=== PATIENT | female | born 1995 | race Caucasian/White ===

== ENCOUNTER 2016-08-09 04:13 | Emergency (ER) | payer OTHER ==
--- NOTE | 2016-08-09 05:10 | ED CLINICAL REPORT ---
Clinical Report - Physicians/Mid Levels [facility] [address] [place] [address] 08/09/2016 4:12 Patient: SKYLER KNUTSON Time Seen: 04:24. Arrived- By private vehicle. Historian- patient. HISTORY OF PRESENT ILLNESS Chief Complaint: LOWER EXTREMITY PAIN. This started today about 30 minutes ago and is still present. It was abrupt in onset and has been constant. Severity is described as being severe. The quality is noted to be "pain". Symptoms located in the area of the left ankle. The patient has not had redness. No swelling, sensory loss or motor loss. Patient denies an injury. REVIEW OF SYSTEMS she is currently breast-feeding. All systems otherwise negative, except as recorded above. PAST HISTORY Problems: Problems. URI. Vomiting. Abdominal Pain. Myofascial Strain. Crush Injury, Lower Extremity. Burn. Cellulitis. Sunburn. Cervical Strain. Laceration. Gastritis. Back Pain. OB History. Contusion. Irritable Bowel Syndrome. Anxiety Reaction. Additional Surgeries: Colonoscopy. Dental Surgery. Endoscopy. Medications: None. Allergies: Q-brinda. SOCIAL HISTORY Former smoker, end date 2015. History of occasional drug use: marijuana. No alcohol use. FAMILY HISTORY No significant family medical history. ADDITIONAL NOTES The nursing notes have been reviewed. PHYSICAL EXAM Vital Signs: 08/09/2016 04:17 BP: 142/74. HR: 79. RR: 15. O2 saturation: 100%. Temp: 98.1 F. Pain level now: 7/10. Have been reviewed. Appearance: Alert. No acute distress. Eyes: Pupils equal, round and reactive to light. ENT: Pharynx normal. Neck: Normal inspection. Neck supple. CVS: Normal heart rate and rhythm. Heart sounds normal. Respiratory: No respiratory distress. Breath sounds normal. Abdomen: Soft and nontender. No organomegaly. Back: Normal inspection. ROM normal. Skin: Skin intact. Skin dry. Normal skin color. Normal skin turgor. Extremities: Left ankle: mild tenderness. Neurovascular intact distally. No ligamentous laxity present. No joint effusion. No erythema, swelling, ecchymosis or deformity. No limitation in ROM. Lower extremities exhibit normal ROM. No lower extremity edema. No signs of infection involving the lower extremities. No lower extremity edema. No calf tenderness. Extremities otherwise negative. Neuro, Vascular and Tendons: No pulse deficit present. Gait: Gait not tested due to pain. LABS, X-RAYS, AND EKG X-Rays: Left ankle negative. The X-rays were independently viewed by me. PROGRESS AND PROCEDURES Course of Care: Patient is stable. Patient/family counseled. Old medical records ordered. Disposition: Discharged. Condition: stable. CLINICAL IMPRESSION Acute left ankle pain. INSTRUCTIONS Apply ice for 20 minutes four times a day until better. Don't apply ice directly to skin and don't use while asleep. Use crutches until better. You may walk and bear weight as tolerated. Warnings: Further evaluation is necessary. GENERAL WARNINGS: Return or contact your physician immediately if your condition worsens or changes unexpectedly, if not improving as expected, or if other problems arise. OTC Medications: Motrin (available over the counter): take according to label instructions. Follow-up: Follow up with a specialist- as recommended by your primary care physician- survey project manager. Understanding of the discharge instructions verbalized by patient. Follow-up with: [facility], , , [address], , [place], [id number] Follow up today. Call for the next available appointment. (Electronically signed by Moises Obregon MD 08/09/2016 8:21)
--- NOTE | 2016-08-09 05:10 | ED ORDER SUMMARY ---
..... Patient: SKYLER KNUTSON OrderSheet [facility] VisitID: [id number] [place] [address] 20y, F Registration Date/Time: 08/09/2016 ORDER SHEET Weight: 74.8 kg (stated) Allergies: Q-brinda GENERAL ORDERS: Ankle 3 or 4V Left Urgent (04:27 08/09/2016 Abiola R.N. verbal order read back to Rosa HOOVER) (4:35 [facility] Area Forester) Crutches (05:05 08/09/2016 Rosa HOOVER) (Ack 5:14 JQuivey R.N.) MEDICATION ORDERS: Toradol IM 60 mg (NOW) (05:05 08/09/2016 Rosa HOOVER) (Ack 5:05 JQuivey R.N.) (5:10 JQuivey R.N.) IV FLUIDS: ORDER SHEET NOTES: [Electronically signed by Jose Bailey R.N. (05:48 08/09/2016)] [Electronically signed by Moises Obregon MD (08:21 08/09/2016)] [Electronically locked/signed by Jose Bailey R.N. (05:48 08/09/2016)]
--- NOTE | 2016-08-09 05:10 | ED NURSING NOTES ---
Clinical Report - Nurses [facility] [place] [address] 08/09/2016 4:12 Patient: SKYLER KNUTSON TRIAGE Triage time 04:17. Acuity: LEVEL 4. Chief Complaint: INJURY TO LEFT ANKLE. 04:21. Alert. SEPSIS SCREEN: Sepsis Screen. Negative (no infection suspected/documented). MEKHI COMA SCORE: Mekhi Coma Scale: 15- eyes open spontaneously (4); best verbal response- oriented x 4 (5); best motor response- obeys commands (6). --04:22 Jose Bailey R.N. 04:17 08/09/16. BP: 142/74. HR: 79. RR: 15. O2 saturation: 100% on room air. Temp: 98.1 F (oral). Pain level now: 02/05. --04:22 Jose Bailey R.N. Weight: 74.8 kg stated. Height/Length: 68 inches Per Patient. BMI: 25.1. --04:20 Jose Bailey R.N. Medications None. --04:18 Jose Bailey R.N. Medication/allergy information source: the patient. --04:22 Jose Bailey R.N. Allergies Q-brinda. --04:19 Jose Bailey R.N. History Arrived by private vehicle. Historian: patient. Accompanied by friend. Primary physician (None). This occurred today. Occurred at home. ( Patient reports waking up with left ankle pain, denies any injury). 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 PAST MEDICAL HX: Tetanus status: up-to-date. Immunizations: up-to-date. Last normal menstrual period- 9 months ago. SOCIAL HX: Former smoker, end date 2015. Occasional alcohol use. History of occasional drug use: marijuana. No infectious disease exposure. ABUSE ASSESSMENT: No report of abuse. FALL RISK ASSESSMENT: Fall risk assessment completed. No fall risk identified. NUTRITIONAL RISK ASSESSMENT: The nutritional risk assessment revealed no deficiencies. FUNCTIONAL ASSESSMENT: Functional assessment: no impairments noted. LEARNING NEEDS ASSESSMENT: The learning needs assessment revealed no barriers. SKIN INTEGRITY ASSESSMENT: Skin integrity risk assessment completed. No skin integrity risk identified. --04:22 Jose Bailey R.N. PROBLEMS: URI. Viral Disease. Cellulitis. Irritable Bowel Syndrome. Anxiety Reaction. UTI - Urinary Tract Infection. --04:19 Jose Bailey R.N. ADDITIONAL SURGERIES: Colonoscopy. Dental Surgery. Endoscopy. --04:19 Jose Bailey R.N. Interventions ID band on patient. To treatment room. --04:22 Jose Bailey R.N. PHYSICAL ASSESSMENT 04:22. To room via wheelchair. GENERAL / NEURO / PSYCH: Oriented X 4. Alert. EXTREMITIES: Extremity pulses are within normal limits. Neuro-vascular status intact to the extremity. SKIN: Skin intact. Skin is warm and dry. --04:22 Jose Bailey R.N. NURSING PROGRESS NOTES 04:22. Two patient identifiers checked. Call light placed in reach. Bed placed in lowest position. Brakes of bed on. Patient ready for evaluation- chart flagged. --04:22 Jose Bailey R.N. 04:32 Portable x-ray left ankle. --04:53 Jose Bailey R.N. 05:08 08/09/2016 Toradol (Ketorolac Tromethamine) IM 60 mg given. Given in the left ventral gluteus. Allergies verified and confirmed 5 rights. --05:10 Jose Bailey R.N. Patient fit with new crutches (0515). --05:18 Debbie Cho. DISPOSITION / DISCHARGE 05:20 Went to discharge pt - pt not in room, unable to locate pt in ED restrooms lobby or parking lot, discharge paper work taken to registration for mailing. The patient left prior to discharge education being provided. --05:41 Jose Bailey R.N. Departure time: 05:20. --05:41 Jose Bailey R.N. Locked/Released at 08/09/2016 5:48 by Jose Bailey R.N.
--- NOTE | 2016-08-09 05:10 | ED ORDER SUMMARY ---
..... Patient: SKYLER KNUTSON OrderSheet [facility] VisitID: [id number] [place] [address] 20y, F Registration Date/Time: 08/09/2016 ORDER SHEET Weight: 74.8 kg (stated) Allergies: Q-brinda GENERAL ORDERS: Ankle 3 or 4V Left Urgent (04:27 08/09/2016 Abiola R.N. verbal order read back to Rosa HOOVER) (4:35 [facility] Metal Products Viewer) Crutches (05:05 08/09/2016 Rosa HOOVER) (Ack 5:14 JQuivey R.N.) MEDICATION ORDERS: Toradol IM 60 mg (NOW) (05:05 08/09/2016 Rosa HOOVER) (Ack 5:05 JQuivey R.N.) (5:10 JQuivey R.N.) IV FLUIDS: ORDER SHEET NOTES: [Electronically signed by Jose Bailey R.N. (05:48 08/09/2016)] [Electronically signed by Moises Obregon MD (08:21 08/09/2016)] [Electronically locked/signed by Jose Bailey R.N. (05:48 08/09/2016)]
--- NOTE | 2016-08-09 05:10 | ED CLINICAL REPORT ---
Clinical Report - Physicians/Mid Levels [facility] [address] [place] [address] 08/09/2016 4:12 Patient: SKYLER KNUTSON Time Seen: 04:24. Arrived- By private vehicle. Historian- patient. HISTORY OF PRESENT ILLNESS Chief Complaint: LOWER EXTREMITY PAIN. This started today about 30 minutes ago and is still present. It was abrupt in onset and has been constant. Severity is described as being severe. The quality is noted to be "pain". Symptoms located in the area of the left ankle. The patient has not had redness. No swelling, sensory loss or motor loss. Patient denies an injury. REVIEW OF SYSTEMS she is currently breast-feeding. All systems otherwise negative, except as recorded above. PAST HISTORY Problems: Problems. URI. Vomiting. Abdominal Pain. Myofascial Strain. Crush Injury, Lower Extremity. Burn. Cellulitis. Sunburn. Cervical Strain. Laceration. Gastritis. Back Pain. OB History. Contusion. Irritable Bowel Syndrome. Anxiety Reaction. Additional Surgeries: Colonoscopy. Dental Surgery. Endoscopy. Medications: None. Allergies: Q-brinda. SOCIAL HISTORY Former smoker, end date 2015. History of occasional drug use: marijuana. No alcohol use. FAMILY HISTORY No significant family medical history. ADDITIONAL NOTES The nursing notes have been reviewed. PHYSICAL EXAM Vital Signs: 08/09/2016 04:17 BP: 142/74. HR: 79. RR: 15. O2 saturation: 100%. Temp: 98.1 F. Pain level now: 7/10. Have been reviewed. Appearance: Alert. No acute distress. Eyes: Pupils equal, round and reactive to light. ENT: Pharynx normal. Neck: Normal inspection. Neck supple. CVS: Normal heart rate and rhythm. Heart sounds normal. Respiratory: No respiratory distress. Breath sounds normal. Abdomen: Soft and nontender. No organomegaly. Back: Normal inspection. ROM normal. Skin: Skin intact. Skin dry. Normal skin color. Normal skin turgor. Extremities: Left ankle: mild tenderness. Neurovascular intact distally. No ligamentous laxity present. No joint effusion. No erythema, swelling, ecchymosis or deformity. No limitation in ROM. Lower extremities exhibit normal ROM. No lower extremity edema. No signs of infection involving the lower extremities. No lower extremity edema. No calf tenderness. Extremities otherwise negative. Neuro, Vascular and Tendons: No pulse deficit present. Gait: Gait not tested due to pain. LABS, X-RAYS, AND EKG X-Rays: Left ankle negative. The X-rays were independently viewed by me. PROGRESS AND PROCEDURES Course of Care: Patient is stable. Patient/family counseled. Old medical records ordered. Disposition: Discharged. Condition: stable. CLINICAL IMPRESSION Acute left ankle pain. INSTRUCTIONS Apply ice for 20 minutes four times a day until better. Don't apply ice directly to skin and don't use while asleep. Use crutches until better. You may walk and bear weight as tolerated. Warnings: Further evaluation is necessary. GENERAL WARNINGS: Return or contact your physician immediately if your condition worsens or changes unexpectedly, if not improving as expected, or if other problems arise. OTC Medications: Motrin (available over the counter): take according to label instructions. Follow-up: Follow up with a specialist- as recommended by your primary care physician- crime laboratory analyst. Understanding of the discharge instructions verbalized by patient. Follow-up with: [facility], , , [address], , [place], [id number] Follow up today. Call for the next available appointment. (Electronically signed by Moises Obregon MD 08/09/2016 8:21)
--- NOTE | 2016-08-09 05:10 | ED NURSING NOTES ---
Clinical Report - Nurses [facility] [place] [address] [address] [place] [address] 08/09/2016 4:12 Patient: SKYLER KNUTSON TRIAGE Triage time 04:17. Acuity: LEVEL 4. Chief Complaint: INJURY TO LEFT ANKLE. 04:21. Alert. SEPSIS SCREEN: Sepsis Screen. Negative (no infection suspected/documented). MEKHI COMA SCORE: Mekhi Coma Scale: 15- eyes open spontaneously (4); best verbal response- oriented x 4 (5); best motor response- obeys commands (6). --04:22 Jose Bailey R.N. 04:17 08/09/16. BP: 142/74. HR: 79. RR: 15. O2 saturation: 100% on room air. Temp: 98.1 F (oral). Pain level now: 02/05. --04:22 Jose Bailey R.N. Weight: 74.8 kg stated. Height/Length: 68 inches Per Patient. BMI: 25.1. --04:20 Jose Bailey R.N. Medications None. --04:18 Jose Bailey R.N. Medication/allergy information source: the patient. --04:22 Jose Bailey R.N. Allergies Q-brinda. --04:19 Jose Bailey R.N. History Arrived by private vehicle. Historian: patient. Accompanied by friend. Primary physician (None). This occurred today. Occurred at home. ( Patient reports waking up with left ankle pain, denies any injury). 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 PAST MEDICAL HX: Tetanus status: up-to-date. Immunizations: up-to-date. Last normal menstrual period- 9 months ago. SOCIAL HX: Former smoker, end date 2015. Occasional alcohol use. History of occasional drug use: marijuana. No infectious disease exposure. ABUSE ASSESSMENT: No report of abuse. FALL RISK ASSESSMENT: Fall risk assessment completed. No fall risk identified. NUTRITIONAL RISK ASSESSMENT: The nutritional risk assessment revealed no deficiencies. FUNCTIONAL ASSESSMENT: Functional assessment: no impairments noted. LEARNING NEEDS ASSESSMENT: The learning needs assessment revealed no barriers. SKIN INTEGRITY ASSESSMENT: Skin integrity risk assessment completed. No skin integrity risk identified. --04:22 Jose Bailey R.N. PROBLEMS: URI. Viral Disease. Cellulitis. Irritable Bowel Syndrome. Anxiety Reaction. UTI - Urinary Tract Infection. --04:19 Jose Bailey R.N. ADDITIONAL SURGERIES: Colonoscopy. Dental Surgery. Endoscopy. --04:19 Jose Bailey R.N. Interventions ID band on patient. To treatment room. --04:22 Jose Bailey R.N. PHYSICAL ASSESSMENT 04:22. To room via wheelchair. GENERAL / NEURO / PSYCH: Oriented X 4. Alert. EXTREMITIES: Extremity pulses are within normal limits. Neuro-vascular status intact to the extremity. SKIN: Skin intact. Skin is warm and dry. --04:22 Jose Bailey R.N. NURSING PROGRESS NOTES 04:22. Two patient identifiers checked. Call light placed in reach. Bed placed in lowest position. Brakes of bed on. Patient ready for evaluation- chart flagged. --04:22 Jose Bailey R.N. 04:32 Portable x-ray left ankle. --04:53 Jose Bailey R.N. 05:08 08/09/2016 Toradol (Ketorolac Tromethamine) IM 60 mg given. Given in the left ventral gluteus. Allergies verified and confirmed 5 rights. --05:10 Jose Bailey R.N. Patient fit with new crutches (0515). --05:18 Debbie Cho. DISPOSITION / DISCHARGE 05:20 Went to discharge pt - pt not in room, unable to locate pt in ED restrooms lobby or parking lot, discharge paper work taken to registration for mailing. The patient left prior to discharge education being provided. --05:41 Jose Bailey R.N. Departure time: 05:20. --05:41 Jose Bailey R.N. Locked/Released at 08/09/2016 5:48 by Jose Bailey R.N.
--- NOTE | 2016-08-09 07:33 | DIAGNOSTIC IMAGING REPORT ---
PROCEDURE: XR ANKLE 3 OR 4 VIEWS - LEFT INDICATION: PAIN, initial encounter TECHNIQUE: Four views. COMPARISON: None. FINDINGS: Osseous structures, joint spaces and soft tissues are normal. Ankle mortise is normal. IMPRESSION: 1. Normal left ankle.
--- NOTE | 2016-08-09 08:22 | ED MAR SUMMARY ---
..... Medication Administration Record [facility] [address] [place] [address] Patient: SKYLER KNUTSON Visit ID: [id number] 20y, F Weight: 74.8 kg Height/Length: 68 in BMI: 25.1 ALLERGIES: Q-brinda Given 05:08 08/09/2016 Jose Bailey RZoeNZoe Medication Administered: TORADOL [IM] (KETOROLAC TROMETHAMINE), Dose: 60 mg IM. Medication Ordered: Toradol IM 60 mg (NOW).
--- NOTE | 2016-08-09 08:22 | ED DISCHARGE INSTRUCTIONS ---
Patient: SKYLER KNUTSON General Instructions [facility] VisitID: [id number] [address] [place] [address] 20y, F Registration Date/Time: 08/09/2016 Acute left ankle pain. INSTRUCTIONS Apply ice for 20 minutes four times a day until better. Don't apply ice directly to skin and don't use while asleep. Use crutches until better. You may walk and bear weight as tolerated. Warnings: Further evaluation is necessary. GENERAL WARNINGS: Return or contact your physician immediately if your condition worsens or changes unexpectedly, if not improving as expected, or if other problems arise. OTC Medications: Motrin (available over the counter): take according to label instructions. Follow-up: Follow up with a specialist- as recommended by your primary care physician- wash driller helper. Understanding of the discharge instructions verbalized by patient. Follow-up with: [facility], , , [address], [place], [id number] Follow up today. Call for the next available appointment. ADDITIONAL INFORMATION Crutch Walking Crutch Adjustment Make sure the crutches you use are adjusted to fit you. When you stand, there should be room to fit 2-3 fingers between the top of the crutch and your armpit. Your elbow should be slightly bent when holding the hand recovery coordinator. Crutch Walking: Place the crutches forward 12" in front of and 6" to the side of your feet. Lean your weight forward as you push down on the handgrips. Your weight should be on your hands and yourstrong leg, not your armpits . Let your body swing through, landing on the strong leg. Advance the crutches forward again. The crutch and the injured leg should move together. Going Up Steps: ("Up with the good") With both crutches on the same step as your feet, push down on the handgrips. Balancing with very light pressure on the weak leg, let your hands support your weight as you raise your strong leg onto the next higher step. Transfer all your weight to your strong leg (still bent) as you move the crutches up to the next step alongside the strong leg. With your weight evenly balanced on the two crutches and your strong leg, straighten your strong knee as you raise the weak leg up to the next step. Going Down Steps: ("Down with the bad") With both crutches on the same step as your feet, push down on the handgrips. With your weight evenly balanced on the two crutches and your strong leg, bend your strong knee as you lower the weak leg down to the next step. Let your strong leg support you (still bent) as you move the crutches down alongside the weak leg. Transfer your weight to your hands, balancing with very light pressure on the weak leg as you lower your strong leg alongside your weak leg. Ibuprofen Oral tablet What is this medicine? IBUPROFEN (eye BYOO proe fen) is a non-steroidal anti-inflammatory drug (NSAID). It is used for dental pain, fever, headaches or migraines, osteoarthritis, rheumatoid arthritis, or painful monthly periods. It can also relieve minor aches and pains caused by a cold, flu, or sore throat. How should I use this medicine? Take this medicine by mouth with a glass of water. Follow the directions on the prescription label. Take this medicine with food if your stomach gets upset. Try to not lie down for at least 10 minutes after you take the medicine. Take your medicine at regular intervals. Do not take your medicine more often than directed. A special MedGuide will be given to you by the pharmacist with each prescription and refill. Be sure to read this information carefully each time. Talk to your anvil seating press operator regarding the use of this medicine in children. Special care may be needed. What side effects may I notice from receiving this medicine? Side effects that you should report to your doctor or health childcare attendant as soon as possible: allergic reactions like skin rash, itching or hives, swelling of the face, lips, or tongue black or bloody stools, blood in the urine or in vomit breathing problems changes in vision chest pain general ill feeling or flu-like symptoms nausea or vomiting redness, blistering, peeling or loosening of the skin, including inside the mouth slurred speech or weakness on one side of the body stomach pain unexplained weight gain or swelling unusually weak or tired yellowing of eyes or skin Side effects that usually do not require medical attention (report to your doctor or health childcare attendant if they continue or are bothersome): constipation or diarrhea dizziness gas or heartburn stomach upset What may interact with this medicine? Do not take this medicine with any of the following medications: cidofovir ketorolac methotrexate pemetrexed This medicine may also interact with the following medications: alcohol aspirin diuretics lithium other drugs for inflammation like prednisone warfarin What if I miss a dose? If you miss a dose, take it as soon as you can. If it is almost time for your next dose, take only that dose. Do not take double or extra doses. Where should I keep my medicine? Keep out of the reach of children. Store at room temperature between 15 and 30 degrees C (59 and 86 degrees F). Keep container tightly closed. Throw away any unused medicine after the expiration date. What should I tell my health care provider before I take this medicine? They need to know if you have any of these conditions: asthma cigarette smoker drink more than 3 alcohol containing drinks a day heart disease or circulation problems such as heart failure or leg edema (fluid retention) high blood pressure kidney disease liver disease stomach bleeding or ulcers an unusual or allergic reaction to ibuprofen, aspirin, other NSAIDS, other medicines, foods, dyes, or preservatives or trying to get breast-feeding What should I watch for while using this medicine? Tell your doctor or healthcare professional if your symptoms do not start to get better or if they get worse. This medicine does not prevent heart attack or stroke. In fact, this medicine may increase the chance of a heart attack or stroke. The chance may increase with longer use of this medicine and in people who have heart disease. If you take aspirin to prevent heart attack or stroke, talk with your doctor or health childcare attendant. Do not take other medicines that contain aspirin, ibuprofen, or naproxen with this medicine. Side effects such as stomach upset, nausea, or ulcers may be more likely to occur. Many medicines available without a prescription should not be taken with this medicine. This medicine can cause ulcers and bleeding in the stomach and intestines at any time during treatment. Ulcers and bleeding can happen without warning symptoms and can cause . To reduce your risk, do not smoke cigarettes or drink alcohol while you are taking this medicine. You may get drowsy or dizzy. Do not drive, use machinery, or do anything that needs mental alertness until you know how this medicine affects you. Do not stand or sit up quickly, especially if you are an older patient. This reduces the risk of dizzy or fainting spells. This medicine can cause you to bleed more easily. Try to avoid damage to your teeth and gums when you brush or floss your teeth. You have been given the following additional information: Crutch Walking Ibuprofen Oral tablet You may walk and bear weight as tolerated. (Electronically signed by Moises Obregon MD 08/09/2016 8:21)
--- NOTE | 2016-08-09 08:22 | ED MED RECONCILIATION SUMMARY ---
Patient: SKYLER KNUTSON Medication Reconciliation Report [facility] VisitID: [id number] [address] [place] [address] 20y, F Registration Date/Time: 08/09/2016 Weight: 74.8 kg Height/Length: 68 in. BMI: 25.1 ALLERGIES: Q-brinda The patient's Home Medications are listed below: NONE. The source(s) of the original Home Medication information: patient The following Medications were given to the patient in the Emergency Department: Toradol [IM] IM 60 mg, administered: 08/09/2016 5:08:00 AM The following Medications were prescribed to the patient: Motrin (available over the counter): take according to label instructions. -- Moises Obregon MD
--- NOTE | 2016-08-09 08:22 | ED MED RECONCILIATION SUMMARY ---
Patient: SKYLER KNUTSON Medication Reconciliation Report [facility] VisitID: [id number] [address] [place] [address] 20y, F Registration Date/Time: 08/09/2016 Weight: 74.8 kg Height/Length: 68 in. BMI: 25.1 ALLERGIES: Q-brinda The patient's Home Medications are listed below: NONE. The source(s) of the original Home Medication information: patient The following Medications were given to the patient in the Emergency Department: Toradol [IM] IM 60 mg, administered: 08/09/2016 5:08:00 AM The following Medications were prescribed to the patient: Motrin (available over the counter): take according to label instructions. -- Moises Obregon MD
--- NOTE | 2016-08-09 08:22 | ED MAR SUMMARY ---
..... Medication Administration Record [facility] [address] [place] [address] Patient: SKYLER KNUTSON Visit ID: [id number] 20y, F Weight: 74.8 kg Height/Length: 68 in BMI: 25.1 ALLERGIES: Q-brinda Given 05:08 08/09/2016 Jose Bailey RZoeNZoe Medication Administered: TORADOL [IM] (KETOROLAC TROMETHAMINE), Dose: 60 mg IM. Medication Ordered: Toradol IM 60 mg (NOW).
--- NOTE | 2016-08-09 08:22 | ED DISCHARGE INSTRUCTIONS ---
Patient: SKYLER KNUTSON General Instructions [facility] VisitID: [id number] [address] [place] [address] 20y, F Registration Date/Time: 08/09/2016 Acute left ankle pain. INSTRUCTIONS Apply ice for 20 minutes four times a day until better. Don't apply ice directly to skin and don't use while asleep. Use crutches until better. You may walk and bear weight as tolerated. Warnings: Further evaluation is necessary. GENERAL WARNINGS: Return or contact your physician immediately if your condition worsens or changes unexpectedly, if not improving as expected, or if other problems arise. OTC Medications: Motrin (available over the counter): take according to label instructions. Follow-up: Follow up with a specialist- as recommended by your primary care physician- clipper automatic. Understanding of the discharge instructions verbalized by patient. Follow-up with: [facility], , , [address], [place], [id number] Follow up today. Call for the next available appointment. ADDITIONAL INFORMATION Crutch Walking Crutch Adjustment Make sure the crutches you use are adjusted to fit you. When you stand, there should be room to fit 2-3 fingers between the top of the crutch and your armpit. Your elbow should be slightly bent when holding the hand college sports coach. Crutch Walking: Place the crutches forward 12" in front of and 6" to the side of your feet. Lean your weight forward as you push down on the handgrips. Your weight should be on your hands and yourstrong leg, not your armpits . Let your body swing through, landing on the strong leg. Advance the crutches forward again. The crutch and the injured leg should move together. Going Up Steps: ("Up with the good") With both crutches on the same step as your feet, push down on the handgrips. Balancing with very light pressure on the weak leg, let your hands support your weight as you raise your strong leg onto the next higher step. Transfer all your weight to your strong leg (still bent) as you move the crutches up to the next step alongside the strong leg. With your weight evenly balanced on the two crutches and your strong leg, straighten your strong knee as you raise the weak leg up to the next step. Going Down Steps: ("Down with the bad") With both crutches on the same step as your feet, push down on the handgrips. With your weight evenly balanced on the two crutches and your strong leg, bend your strong knee as you lower the weak leg down to the next step. Let your strong leg support you (still bent) as you move the crutches down alongside the weak leg. Transfer your weight to your hands, balancing with very light pressure on the weak leg as you lower your strong leg alongside your weak leg. Ibuprofen Oral tablet What is this medicine? IBUPROFEN (eye BYOO proe fen) is a non-steroidal anti-inflammatory drug (NSAID). It is used for dental pain, fever, headaches or migraines, osteoarthritis, rheumatoid arthritis, or painful monthly periods. It can also relieve minor aches and pains caused by a cold, flu, or sore throat. How should I use this medicine? Take this medicine by mouth with a glass of water. Follow the directions on the prescription label. Take this medicine with food if your stomach gets upset. Try to not lie down for at least 10 minutes after you take the medicine. Take your medicine at regular intervals. Do not take your medicine more often than directed. A special MedGuide will be given to you by the pharmacist with each prescription and refill. Be sure to read this information carefully each time. Talk to your ms access database developer regarding the use of this medicine in children. Special care may be needed. What side effects may I notice from receiving this medicine? Side effects that you should report to your doctor or health direct care specialist as soon as possible: allergic reactions like skin rash, itching or hives, swelling of the face, lips, or tongue black or bloody stools, blood in the urine or in vomit breathing problems changes in vision chest pain general ill feeling or flu-like symptoms nausea or vomiting redness, blistering, peeling or loosening of the skin, including inside the mouth slurred speech or weakness on one side of the body stomach pain unexplained weight gain or swelling unusually weak or tired yellowing of eyes or skin Side effects that usually do not require medical attention (report to your doctor or health direct care specialist if they continue or are bothersome): constipation or diarrhea dizziness gas or heartburn stomach upset What may interact with this medicine? Do not take this medicine with any of the following medications: cidofovir ketorolac methotrexate pemetrexed This medicine may also interact with the following medications: alcohol aspirin diuretics lithium other drugs for inflammation like prednisone warfarin What if I miss a dose? If you miss a dose, take it as soon as you can. If it is almost time for your next dose, take only that dose. Do not take double or extra doses. Where should I keep my medicine? Keep out of the reach of children. Store at room temperature between 15 and 30 degrees C (59 and 86 degrees F). Keep container tightly closed. Throw away any unused medicine after the expiration date. What should I tell my health care provider before I take this medicine? They need to know if you have any of these conditions: asthma cigarette smoker drink more than 3 alcohol containing drinks a day heart disease or circulation problems such as heart failure or leg edema (fluid retention) high blood pressure kidney disease liver disease stomach bleeding or ulcers an unusual or allergic reaction to ibuprofen, aspirin, other NSAIDS, other medicines, foods, dyes, or preservatives or trying to get breast-feeding What should I watch for while using this medicine? Tell your doctor or healthcare professional if your symptoms do not start to get better or if they get worse. This medicine does not prevent heart attack or stroke. In fact, this medicine may increase the chance of a heart attack or stroke. The chance may increase with longer use of this medicine and in people who have heart disease. If you take aspirin to prevent heart attack or stroke, talk with your doctor or health direct care specialist. Do not take other medicines that contain aspirin, ibuprofen, or naproxen with this medicine. Side effects such as stomach upset, nausea, or ulcers may be more likely to occur. Many medicines available without a prescription should not be taken with this medicine. This medicine can cause ulcers and bleeding in the stomach and intestines at any time during treatment. Ulcers and bleeding can happen without warning symptoms and can cause . To reduce your risk, do not smoke cigarettes or drink alcohol while you are taking this medicine. You may get drowsy or dizzy. Do not drive, use machinery, or do anything that needs mental alertness until you know how this medicine affects you. Do not stand or sit up quickly, especially if you are an older patient. This reduces the risk of dizzy or fainting spells. This medicine can cause you to bleed more easily. Try to avoid damage to your teeth and gums when you brush or floss your teeth. You have been given the following additional information: Crutch Walking Ibuprofen Oral tablet You may walk and bear weight as tolerated. (Electronically signed by Moises Obregon MD 08/09/2016 8:21)
== END 2016-08-09 05:20 | disposition home or self-care (01) ==
LOC: ED SRH 04:13
DX: M25.572 Pain in left ankle and joints of left foot (principal); Z87.891 Personal history of nicotine dependence; Z88.8 Allergy status to other drugs, medicaments and biological substances

== ENCOUNTER 2016-10-25 18:37 | Emergency (ER) | payer OTHER ==
--- NOTE | 2016-10-25 20:06 | DIAGNOSTIC IMAGING REPORT ---
PROCEDURE: XR CHEST 2 VIEW INDICATION: CHEST PAIN TECHNIQUE: PA and lateral views. COMPARISON: None. FINDINGS: Allowing for overlying electrodes, lungs are clear. Heart and mediastinum are normal. Thorax is normal. IMPRESSION: 1. Negative chest.
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
--- NOTE | 2016-10-25 20:11 | ED ORDER SUMMARY ---
..... Patient: SKYLER KNUTSON OrderSheet [facility] VisitID: [id number] [place] [address] 20y, F Registration Date/Time: 10/25/2016 ORDER SHEET Weight: 73.9 kg (stated) Allergies: Shellfish-derived Products, Qvar GENERAL ORDERS: EKG - ER Stat (18:43 10/25/2016 SReitz R.N. per protocol) (Ack 18:45 LNations ER Tech1) (18:50 SReitz R.N.) Theater Usher (Continuous) (18:48 10/25/2016 EKoroleva P.A.-C) (18:50 SReitz R.N.) Cardiac Panel Stat (18:49 10/25/2016 EKoroleva P.A.-C) (Ack 18:54 LNations ER Tech1) (19:03 SReitz R.N.) EKG - ER Stat (18:49 10/25/2016 EKoroleva P.A.-C) (18:50 SReitz R.N.) (Cancelled: Other18:53 EKoroleva P.A.-C) Chest 2V Urgent (18:53 10/25/2016 EKoroleva P.A.-C) (Ack 18:55 LNations ER Tech1) (19:56 AMcQuoid ER Tech1) Serum Qualitative Urgent (18:53 10/25/2016 EKoroleva P.A.-C) (Ack 18:55 LNations ER Tech1) (19:03 SReitz R.N.) Vitals (19:23 10/25/2016 EKoroleva P.A.-C) (19:27 SReitz R.N.) Vitals (20:09 10/25/2016 EKoroleva P.A.-C) (20:09 AMcQuoid ER Tech1) MEDICATION ORDERS: IV FLUIDS: IV NS : initial bolus 1000 mL (1000 mL/hr), then 1000 mL/hr for X1 (NOW); Dony (18:47 10/25/2016 EKoroleva P.A.-C) (Ack 18:50 SReitz R.N.) (19:03 SReitz R.N.) Solu-MEDROL IV 125 mg (NOW) (18:48 10/25/2016 EKoroleva P.A.-C) (Ack 18:50 SReitz R.N.) (19:04 SReitz R.N.) Benadryl IV 50 mg (NOW) (18:48 10/25/2016 EKoroleva P.A.-C) (Ack 18:50 Bismarkitz R.N.) (19:04 SReitz R.N.) Zofran IV 4 mg (NOW) (18:49 10/25/2016 EKoroleva P.A.-C) (Ack 18:50 SReitz R.N.) (19:05 SReitz R.N.) ORDER SHEET NOTES: [Electronically signed by Desirae Harris P.A.-C (21:06 10/25/2016)] [Electronically signed by Maria Del Rosario Prieto R.N. (22:31 10/25/2016)] [Electronically locked/signed by Maria Del Rosario Prieto R.N. (22:31 10/25/2016)]
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
--- NOTE | 2016-10-25 20:11 | ED ORDER SUMMARY ---
..... Patient: SKYLER KNUTSON OrderSheet [facility] VisitID: [id number] [place] [address] 20y, F Registration Date/Time: 10/25/2016 ORDER SHEET Weight: 73.9 kg (stated) Allergies: Shellfish-derived Products, Qvar GENERAL ORDERS: EKG - ER Stat (18:43 10/25/2016 SReitz R.N. per protocol) (Ack 18:45 LNations ER Tech1) (18:50 SReitz R.N.) Trial Consultant (Continuous) (18:48 10/25/2016 EKoroleva P.A.-C) (18:50 SReitz R.N.) Cardiac Panel Stat (18:49 10/25/2016 EKoroleva P.A.-C) (Ack 18:54 LNations ER Tech1) (19:03 SReitz R.N.) EKG - ER Stat (18:49 10/25/2016 EKoroleva P.A.-C) (18:50 SReitz R.N.) (Cancelled: Other18:53 EKoroleva P.A.-C) Chest 2V Urgent (18:53 10/25/2016 EKoroleva P.A.-C) (Ack 18:55 LNations ER Tech1) (19:56 AMcQuoid ER Tech1) Serum Qualitative Urgent (18:53 10/25/2016 EKoroleva P.A.-C) (Ack 18:55 LNations ER Tech1) (19:03 SReitz R.N.) Vitals (19:23 10/25/2016 EKoroleva P.A.-C) (19:27 SReitz R.N.) Vitals (20:09 10/25/2016 EKoroleva P.A.-C) (20:09 AMcQuoid ER Tech1) MEDICATION ORDERS: IV FLUIDS: IV NS : initial bolus 1000 mL (1000 mL/hr), then 1000 mL/hr for X1 (NOW); Dony (18:47 10/25/2016 EKoroleva P.A.-C) (Ack 18:50 SReitz R.N.) (19:03 SReitz R.N.) Solu-MEDROL IV 125 mg (NOW) (18:48 10/25/2016 EKoroleva P.A.-C) (Ack 18:50 SReitz R.N.) (19:04 SReitz R.N.) Benadryl IV 50 mg (NOW) (18:48 10/25/2016 EKoroleva P.A.-C) (Ack 18:50 Bismarkitz R.N.) (19:04 SReitz R.N.) Zofran IV 4 mg (NOW) (18:49 10/25/2016 EKoroleva P.A.-C) (Ack 18:50 SReitz R.N.) (19:05 SReitz R.N.) ORDER SHEET NOTES: [Electronically signed by Desirae Harris P.A.-C (21:06 10/25/2016)] [Electronically signed by Maria Del Rosario Prieto R.N. (22:31 10/25/2016)] [Electronically locked/signed by Maria Del Rosario Priteo R.N. (22:31 10/25/2016)]
--- NOTE | 2016-10-25 22:31 | ED MED RECONCILIATION SUMMARY ---
Patient: SKYLER KNUTSON Medication Reconciliation Report [facility] VisitID: [id number] [place] [address] 20y, F Registration Date/Time: 10/25/2016 Weight: 73.9 kg Height/Length: 67 in. BMI: 25.5 ALLERGIES: Qvar, Shellfish-derived Products The patient's Home Medications are listed below: THE FOLLOWING MEDICATIONS NEED TO BE RECONCILED: Albuterol Sulfate Inhalation The source(s) of the original Home Medication information: Not obtained. The following Medications were given to the patient in the Emergency Department: IV NS IV Fluids bolus 0, then 1000 mL/hr, administered: 10/25/2016 6:57:00 PM Benadryl [IVP] IVP 50 mg, administered: 10/25/2016 6:58:00 PM SOLU-MEDROL [IVP] IVP 125 mg, administered: 10/25/2016 7:00:00 PM Zofran [IVP] IVP 4 mg, administered: 10/25/2016 7:02:00 PM The following Medications were prescribed to the patient: Albuterol HFA oral inhaler: inhale 1 to 2 puffs every four to six hours as needed for difficulty breathing. Dispense one (1) unit. No refills. -- Desirae Harris, PZoeAKainC
--- NOTE | 2016-10-25 22:31 | ED MAR SUMMARY ---
..... Medication Administration Record [facility] [address] [place] [address] Patient: SKYLER KNUTSON Visit ID: [id number] 20y, F Weight: 73.9 kg Height/Length: 67 in BMI: 25.5 ALLERGIES: Qvar, Shellfish-derived Products Start 18:57 10/25/2016 Maria Del Rosario Prieto R.N., Stop 20:38 10/25/2016 Maria Del Rosario Prieto R.N. Medication Administered: IV NS (SALINE), Dose: IV Fluids over 1 hour(s), Rate: 1000 mL/hr, Dispensed: 1000 mL bag, Site: #1 left AC. Medication Ordered: IV NS : initial bolus 1000 mL (1000 mL/hr), then 1000 mL/hr for X1 (NOW); Dony. Given 18:58 10/25/2016 Maria Del Rosario Prieto R.N. Medication Administered: BENADRYL [IVP] (DIPHENHYDRAMINE HCL), Dose: 50 mg IVP over 2 minute(s), Site: #1 left AC. Medication Ordered: Benadryl IV 50 mg (NOW). Given 19:00 10/25/2016 Maria Del Rosario Prieto R.N. Medication Administered: SOLU-MEDROL [IVP] (METHYLPREDNISOLONE SODIUM SUCC), Dose: 125 mg IVP over 2 minute(s), Site: #1 left AC. Medication Ordered: Solu-MEDROL IV 125 mg (NOW). Given 19:02 10/25/2016 Maria Del Rosario Prieto R.N. Medication Administered: ZOFRAN [IVP] (ONDANSETRON HCL), Dose: 4 mg IVP over 1 minute(s), Site: #1 left AC. Medication Ordered: Zofran IV 4 mg (NOW).
--- NOTE | 2016-10-25 22:31 | ED MED RECONCILIATION SUMMARY ---
Patient: SKYLER KNUTSON Medication Reconciliation Report [facility] VisitID: [id number] [place] [address] 20y, F Registration Date/Time: 10/25/2016 Weight: 73.9 kg Height/Length: 67 in. BMI: 25.5 ALLERGIES: Qvar, Shellfish-derived Products The patient's Home Medications are listed below: THE FOLLOWING MEDICATIONS NEED TO BE RECONCILED: Albuterol Sulfate Inhalation The source(s) of the original Home Medication information: Not obtained. The following Medications were given to the patient in the Emergency Department: IV NS IV Fluids bolus 0, then 1000 mL/hr, administered: 10/25/2016 6:57:00 PM Benadryl [IVP] IVP 50 mg, administered: 10/25/2016 6:58:00 PM SOLU-MEDROL [IVP] IVP 125 mg, administered: 10/25/2016 7:00:00 PM Zofran [IVP] IVP 4 mg, administered: 10/25/2016 7:02:00 PM The following Medications were prescribed to the patient: Albuterol HFA oral inhaler: inhale 1 to 2 puffs every four to six hours as needed for difficulty breathing. Dispense one (1) unit. No refills. -- Desirae Harris, PZoeAKainC
--- NOTE | 2016-10-25 22:31 | ED DISCHARGE INSTRUCTIONS ---
Patient: SKYLER KNUTSON General Instructions [facility] VisitID: [id number] [place] [address] 20y, F Registration Date/Time: 10/25/2016 Mild persistent asthma with an acute exacerbation. INSTRUCTIONS (IF any new Sudden SHORTNESS Of breath Immediately to the ER). Prescription Medications: Albuterol HFA oral inhaler: inhale 1 to 2 puffs every four to six hours as needed for difficulty breathing. Dispense one (1) unit. No refills. Follow-up: Follow up with your doctor in two days. ADDITIONAL INFORMATION Asthma [Adult] Asthma is a disease where the small air passages within the lung go into spasm and restrict the flow of air. Inflammation and swelling of the airways cause further restriction. During an acute asthma attack, these factors cause difficulty breathing, wheezing, cough and chest tightness. An asthma attack can be triggered by many things. Common triggers include the common cold, bronchitis, pneumonia, irritants such as smoke or pullutants in the air, emotional upset and heavy exercise. Inmany adults with asthma, allergies todust, mold, pollen and animal dander can cause an asthma attack. Skipping doses of daily asthma medicine can also bring on an asthma attack. Asthma can be controlled with proper medicines and decreased exposure to known allergens. Home Care: Take prescribed medicine exactly at the times advised. If you have a hand-held inhaler or aerosol breathing medicine, do not use it more than once every four hours, unless told to do so. (If you need this medicine more than every four hours, you may need to return to the Emergency Room.) If prescribed an antibiotic or prednisone, take all of the medicine even if you are feeling better after a few days. Do not smoke. Avoid being exposed to the smoke of others. Some persons with asthma have worsening of their symptoms when they take aspirin and non-steroidal medicines like ibuprofen (Motrin, Advil) and naproxen (Aleve, Naprosyn). Talk to your doctor if you think this may apply to you. Acetaminophen (Tylenol)should be safe to use. Follow Up with your doctor, or as advised by our staff. Always bring all of your current medicines with you for your doctor to see. If you do not already have one, talk to your doctor about developing a personalized "Asthma Action Plan." [NOTE: A pneumococcal vaccine and yearly flu shot (every fall) are recommended. Ask your doctor about this.] Get Prompt Medical Attention if any of the following occur: Increased wheezing or shortness of breath Need to use your inhalers more often than usual without relief Fever of 100.4F (38C) or higher, or as directed by your healthcare provider Coughing up lots of dark-colored or bloody sputum (mucus) Chest pain with each breath You do not start to improve within 24 hours Call 911 If Any Of The Following Occur : Trouble walking or talking because of shortness of breath If you use a peak flow meter andyou are still in the red zone (less than 50 percent) 15 minutes after using inhaler medication Lips or fingernails turning machado or blue You have been given the following additional information: Asthma, Acute (Adult) (Electronically signed by Desirae Harris P.A.-C 10/25/2016 21:06)
--- NOTE | 2016-10-25 22:31 | ED MAR SUMMARY ---
..... Medication Administration Record [facility] [address] [place] [address] Patient: SKYLER KNUTSON Visit ID: [id number] 20y, F Weight: 73.9 kg Height/Length: 67 in BMI: 25.5 ALLERGIES: Qvar, Shellfish-derived Products Start 18:57 10/25/2016 Maria Del Rosario Prieto R.N., Stop 20:38 10/25/2016 Maria Del Rosario Prieto R.N. Medication Administered: IV NS (SALINE), Dose: IV Fluids over 1 hour(s), Rate: 1000 mL/hr, Dispensed: 1000 mL bag, Site: #1 left AC. Medication Ordered: IV NS : initial bolus 1000 mL (1000 mL/hr), then 1000 mL/hr for X1 (NOW); Dony. Given 18:58 10/25/2016 Maria Del Rosario Prieto R.N. Medication Administered: BENADRYL [IVP] (DIPHENHYDRAMINE HCL), Dose: 50 mg IVP over 2 minute(s), Site: #1 left AC. Medication Ordered: Benadryl IV 50 mg (NOW). Given 19:00 10/25/2016 Maria Del Rosario Prieto R.N. Medication Administered: SOLU-MEDROL [IVP] (METHYLPREDNISOLONE SODIUM SUCC), Dose: 125 mg IVP over 2 minute(s), Site: #1 left AC. Medication Ordered: Solu-MEDROL IV 125 mg (NOW). Given 19:02 10/25/2016 Maria Del Rosario Prieto R.N. Medication Administered: ZOFRAN [IVP] (ONDANSETRON HCL), Dose: 4 mg IVP over 1 minute(s), Site: #1 left AC. Medication Ordered: Zofran IV 4 mg (NOW).
== END 2016-10-25 20:40 | disposition home or self-care (01) ==
LOC: ED SRH 18:37
DX: J45.31 Mild persistent asthma with (acute) exacerbation (principal); L50.9 Urticaria, unspecified; Z79.899 Other long term (current) drug therapy; Z88.8 Allergy status to other drugs, medicaments and biological substances; Z91.013 Allergy to seafood
CPT/HCPCS: 90100; 90616; 92610; 92720; 95059; 98428

== ENCOUNTER 2017-01-10 19:38 | Emergency (ER) | payer OTHER ==
--- NOTE | 2017-01-10 21:16 | ED CLINICAL REPORT ---
Clinical Report - Physicians/Mid Levels [facility] [address] [place] [address] 01/10/2017 19:38 Patient: SKYLER KNUTSON Time Seen: 20:14 Jan 10 2017. Arrived- By private vehicle. Historian- patient. HISTORY OF PRESENT ILLNESS Chief Complaint: Injury to the right thumb. The injury happened just prior to arrival. Occurred at home. The patient sustained a direct blow. Patient is experiencing mild pain. Patient denies injury to the head or neck. ( patient is a Mclaughlin of the right thumb, yesterday, hyperextending such, was seen at the clinic today, was told initially her x-ray were unremarkable, and this is likely a sprain, then told that she likely has a fracture, and this patient is here. Patient reports some pain at the proximal aspect of her thumb.). REVIEW OF SYSTEMS No tingling. All systems otherwise negative, except as recorded above. PAST HISTORY The patient's dominant hand is the right. She has not had a prior injury to the same area. Tetanus immunization status is up-to-date. SOCIAL HISTORY Former smoker. No alcohol use or drug use. ADDITIONAL NOTES The nursing notes have been reviewed. PHYSICAL EXAM Vital Signs: 01/10/2017 20:02 BP: 120/62. HR: 70. RR: 16. O2 saturation: 100%. Temp: 98.6 F. Pain level now: 8/10. Appearance: Alert. No acute distress. Head: Head atraumatic. CVS: Normal heart rate and rhythm. Heart sounds normal. Respiratory: No respiratory distress. Breath sounds normal. No chest wall injury. Extremities: Anatomic snuffbox, right arm: No tenderness or laceration. Thenar eminence, right hand: No tenderness or swelling. Right thumb: mild tenderness. No swelling, ecchymosis or foreign body. No localization. Tip of right thumb. No tenderness. Neuro, Vascular and Tendons: Vascular status intact. Tendon function intact. Neuro: Oriented X 3. No motor deficit. LABS, X-RAYS, AND EKG Note - Tests: (right hand and finger x-ray reviewed, with Dr. Ferrer, was previously dictated by Dr. Padilla, with a possible avulsion fracture of the distal aspect of the thumb.). PROGRESS AND PROCEDURES PROCEDURES (Patient placed in an aluminum foam splint, and placed her wrist Velcro With such.). Course of Care: Patient with full range of motion, no signs of decrease in strength. No signs of laceration, ecchymosis. No snuffbox tenderness. Follow-up with orthopedics or her PCP as needed. No signs of tendon injury. No signs of infectious process. 01/10/2017 21:23 BP: 132/70. HR: 74. RR: 18. O2 saturation: 100%. Pain level now: 8/10. Patient is stable. Patient/family counseled. Disposition: Discharged. Condition: good. CLINICAL IMPRESSION Distal phalanx fracture of the right thumb (avulsion). INSTRUCTIONS Apply ice. Elevate affected areas above chest level. Limit use of your hand. Prescription Medications: Hydrocodone/APAP 5mg / 325mg: take 1 orally every 6 hours as needed for pain. Dispense ten (10). No refill. Follow-up with: [facility], , [address], , [place], [address] Follow up. Call for the next available appointment. (Electronically signed by Desirae Harris P.A.-C 01/10/2017 21:47)
--- NOTE | 2017-01-10 21:16 | ED ORDER SUMMARY ---
..... Patient: SKYLER KNUTSON OrderSheet [facility] VisitID: [id number] [address] [place] [address] 21y, F Registration Date/Time: 01/10/2017 ORDER SHEET Weight: 71.2 kg (stated) Allergies: Qvar Inhalation GENERAL ORDERS: MEDICATION ORDERS: Hydrocodone-APAP PO 5/325 mg (NOW, HIGH ALERT MEDICATION) (21:16 01/10/2017 Paulina Marroquin) ([facility] 21:21 DDean R.N.) (21:23 DDean R.N.) IV FLUIDS: ORDER SHEET NOTES: [Electronically signed by Mehreen Morris R.N. (21:36 01/10/2017)] [Electronically signed by Desirae Harris P.A.-C (21:47 01/10/2017)] [Electronically locked/signed by Mehreen Morris R.N. (21:36 01/10/2017)]
--- NOTE | 2017-01-10 21:16 | ED CLINICAL REPORT ---
Clinical Report - Physicians/Mid Levels [facility] [address] [place] [address] 01/10/2017 19:38 Patient: SKYLER KNUTSON Time Seen: 20:14 Jan 10 2017. Arrived- By private vehicle. Historian- patient. HISTORY OF PRESENT ILLNESS Chief Complaint: Injury to the right thumb. The injury happened just prior to arrival. Occurred at home. The patient sustained a direct blow. Patient is experiencing mild pain. Patient denies injury to the head or neck. ( patient is a Mclaughlin of the right thumb, yesterday, hyperextending such, was seen at the clinic today, was told initially her x-ray were unremarkable, and this is likely a sprain, then told that she likely has a fracture, and this patient is here. Patient reports some pain at the proximal aspect of her thumb.). REVIEW OF SYSTEMS No tingling. All systems otherwise negative, except as recorded above. PAST HISTORY The patient's dominant hand is the right. She has not had a prior injury to the same area. Tetanus immunization status is up-to-date. SOCIAL HISTORY Former smoker. No alcohol use or drug use. ADDITIONAL NOTES The nursing notes have been reviewed. PHYSICAL EXAM Vital Signs: 01/10/2017 20:02 BP: 120/62. HR: 70. RR: 16. O2 saturation: 100%. Temp: 98.6 F. Pain level now: 8/10. Appearance: Alert. No acute distress. Head: Head atraumatic. CVS: Normal heart rate and rhythm. Heart sounds normal. Respiratory: No respiratory distress. Breath sounds normal. No chest wall injury. Extremities: Anatomic snuffbox, right arm: No tenderness or laceration. Thenar eminence, right hand: No tenderness or swelling. Right thumb: mild tenderness. No swelling, ecchymosis or foreign body. No localization. Tip of right thumb. No tenderness. Neuro, Vascular and Tendons: Vascular status intact. Tendon function intact. Neuro: Oriented X 3. No motor deficit. LABS, X-RAYS, AND EKG Note - Tests: (right hand and finger x-ray reviewed, with Dr. Ferrer, was previously dictated by Dr. Padilla, with a possible avulsion fracture of the distal aspect of the thumb.). PROGRESS AND PROCEDURES PROCEDURES (Patient placed in an aluminum foam splint, and placed her wrist Velcro With such.). Course of Care: Patient with full range of motion, no signs of decrease in strength. No signs of laceration, ecchymosis. No snuffbox tenderness. Follow-up with orthopedics or her PCP as needed. No signs of tendon injury. No signs of infectious process. 01/10/2017 21:23 BP: 132/70. HR: 74. RR: 18. O2 saturation: 100%. Pain level now: 8/10. Patient is stable. Patient/family counseled. Disposition: Discharged. Condition: good. CLINICAL IMPRESSION Distal phalanx fracture of the right thumb (avulsion). INSTRUCTIONS Apply ice. Elevate affected areas above chest level. Limit use of your hand. Prescription Medications: Hydrocodone/APAP 5mg / 325mg: take 1 orally every 6 hours as needed for pain. Dispense ten (10). No refill. Follow-up with: [facility], , [address], , [place], [address] Follow up. Call for the next available appointment. (Electronically signed by Desirae Harris P.A.-C 01/10/2017 21:47)
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
--- NOTE | 2017-01-10 21:16 | ED ORDER SUMMARY ---
..... Patient: SKYLER KNUTSON OrderSheet [facility] VisitID: [id number] [address] [place] [address] 21y, F Registration Date/Time: 01/10/2017 ORDER SHEET Weight: 71.2 kg (stated) Allergies: Qvar Inhalation GENERAL ORDERS: MEDICATION ORDERS: Hydrocodone-APAP PO 5/325 mg (NOW, HIGH ALERT MEDICATION) (21:16 01/10/2017 Paulina Marroquin) ([facility] 21:21 DDean R.N.) (21:23 DDean R.N.) IV FLUIDS: ORDER SHEET NOTES: [Electronically signed by Mehreen Morris R.N. (21:36 01/10/2017)] [Electronically signed by Desirae Harris P.A.-C (21:47 01/10/2017)] [Electronically locked/signed by Mehreen Morris R.N. (21:36 01/10/2017)]
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
--- NOTE | 2017-01-10 21:47 | ED DISCHARGE INSTRUCTIONS ---
Patient: SKYLER KNUTSON General Instructions [facility] VisitID: [id number] [address] [place] [address] 21y, F Registration Date/Time: 01/10/2017 Distal phalanx fracture of the right thumb (avulsion). INSTRUCTIONS Apply ice. Elevate affected areas above chest level. Limit use of your hand. Prescription Medications: Hydrocodone/APAP 5mg / 325mg: take 1 orally every 6 hours as needed for pain. Dispense ten (10). No refill. Follow-up with: [facility], , [address], [place], [address] Follow up. Call for the next available appointment. ADDITIONAL INFORMATION Fracture: Finger [Closed] You have a fracture of your finger (broken finger). This causes local pain, swelling and bruising. This injury takes about four weeks to heal. Finger injuries are often treated with a splint, cast or by taping the injured finger to the next one ("lennox taping"). This protects the injured finger and holds the bone in position while it heals. More serious fractures may require surgery. If the FINGERNAIL has been severely injured, it will probably fall off in 1-2 weeks. A new fingernail will usually start to grow back within a month. Home Care: 1) Keep your hand elevated to reduce pain and swelling. When sitting or lying down elevate your arm above the level of your heart. You can do this by placing your arm on a pillow that rests on your chest or on a pillow at your side. This is most important during the first 48 hours after injury. 2) Apply an ice pack (ice cubes in a plastic bag, wrapped in a towel) over the injured area for 20 minutes every 1-2 hours the first day for pain relief. Continue this 3-4 times a day until the pain and swelling goes away. 3) Keep the cast/splint completely dry at all times. Bathe with your cast/splint out of the water, protected with a large plastic bag, rubber-banded at the top end. If a fiberglass cast/splint gets wet, you can dry it with a hair-dryer. 4) If lennox tape was applied and it becomes wet or dirty, change it. You may replace it with paper, plastic or cloth tape. Cloth tape and paper tapes must be kept dry. Keep the lennox tape in place for at least four weeks. 5) You may use acetaminophen (Tylenol) or ibuprofen (Motrin, Advil) to control pain, unless another pain medicine was prescribed. [ NOTE : If you have chronic liver or kidney disease or ever had a stomach ulcer or GI bleeding, talk with your doctor before using these medicines.] Follow Up with your doctor within one week, or as advised by our staff, to be sure the bone is healing properly, . [NOTE: A radiologist will review any X-rays that were taken. We will notify you of any new findings that may affect your care.] Get Prompt Medical Attention if any of the following occur: -- The plaster cast or splint becomes wet or soft -- The fiberglass cast or splint remains wet for more than 24 hours -- Pain or swelling increases -- Redness, warmth, swelling, drainage from the wound or foul odor from a cast or splint -- Finger becomes more cold, blue, numb or tingly Hydrocodone Bitartrate, Acetaminophen Oral tablet What is this medicine? ACETAMINOPHEN; HYDROCODONE (a set a ANKIT daryn fen; yudelka droe KOE done) is a pain reliever. It is used to treat mild to moderate pain. How should I use this medicine? Take this medicine by mouth. Swallow it with a full glass of water. Follow the directions on the prescription label. If the medicine upsets your stomach, take the medicine with food or milk. Do not take more than you are told to take. Talk to your medical scientific officer regarding the use of this medicine in children. This medicine is not approved for use in children. What side effects may I notice from receiving this medicine? Side effects that you should report to your doctor or health healthcare network consultant as soon as possible: allergic reactions like skin rash, itching or hives, swelling of the face, lips, or tongue breathing problems confusion feeling faint or lightheaded, falls stomach pain yellowing of the eyes or skin Side effects that usually do not require medical attention (report to your doctor or health healthcare network consultant if they continue or are bothersome): nausea, vomiting stomach upset What may interact with this medicine? alcohol antihistamines isoniazid medicines for depression, anxiety, or psychotic disturbances medicines for sleep muscle relaxants naltrexone narcotic medicines (opiates) for pain phenobarbital ritonavir tramadol What if I miss a dose? If you miss a dose, take it as soon as you can. If it is almost time for your next dose, take only that dose. Do not take double or extra doses. Where should I keep my medicine? Keep out of the reach of children. This medicine can be abused. Keep your medicine in a safe place to protect it from theft. Do not share this medicine with anyone. Selling or giving away this medicine is dangerous and against the law. Store at room temperature between 15 and 30 degrees C (59 and 86 degrees F). Protect from light. Keep container tightly closed. Throw away any unused medicine after the expiration date. Discard unused medicine and used packaging carefully. Pets and children can be harmed if they find used or lost packages. What should I tell my health care provider before I take this medicine? They need to know if you have any of these conditions: brain tumor Crohn's disease, inflammatory bowel disease, or ulcerative colitis drink more than 3 alcohol-containing drinks per day drug abuse or addiction head injury heart or circulation problems kidney disease or problems going to the bathroom liver disease lung disease, asthma, or breathing problems an unusual or allergic reaction to acetaminophen, hydrocodone, other opioid analgesics, other medicines, foods, dyes, or preservatives or trying to get breast-feeding What should I watch for while using this medicine? Tell your doctor or health healthcare network consultant if your pain does not go away, if it gets worse, or if you have new or a different type of pain. You may develop tolerance to the medicine. Tolerance means that you will need a higher dose of the medicine for pain relief. Tolerance is normal and is expected if you take the medicine for a long time. Do not suddenly stop taking your medicine because you may develop a severe reaction. Your body becomes used to the medicine. This does NOT mean you are addicted. Addiction is a behavior related to getting and using a drug for a non-medical reason. If you have pain, you have a medical reason to take pain medicine. Your doctor will tell you how much medicine to take. If your doctor wants you to stop the medicine, the dose will be slowly lowered over time to avoid any side effects. You may get drowsy or dizzy when you first start taking the medicine or change doses. Do not drive, use machinery, or do anything that may be dangerous until you know how the medicine affects you. Stand or sit up slowly. There are different types of narcotic medicines (opiates) for pain. If you take more than one type at the same time, you may have more side effects. Give your health care provider a list of all medicines you use. Your doctor will tell you how much medicine to take. Do not take more medicine than directed. Call emergency for help if you have problems breathing. The medicine will cause constipation. Try to have a bowel movement at least every 2 to 3 days. If you do not have a bowel movement for 3 days, call your doctor or health healthcare network consultant. Too much acetaminophen can be very dangerous. Do not take Tylenol (acetaminophen) or medicines that contain acetaminophen with this medicine. Many non-prescription medicines contain acetaminophen. Always read the labels carefully. You have been given the following additional information: Fracture, Finger (Closed) Hydrocodone Bitartrate, Acetaminophen Oral tablet Limit use of your hand. (Electronically signed by Desirae Harris P.A.-C 01/10/2017 21:47)
--- NOTE | 2017-01-10 21:47 | ED MAR SUMMARY ---
..... Medication Administration Record [facility] [address] [place] [address] Patient: SKYLER KNUTSON Visit ID: [id number] 21y, F Weight: 71.2 kg Height/Length: 68 in BMI: 23.9 ALLERGIES: Qvar Inhalation Given 21:18 01/10/2017 Arturo, Mehreen RAdrienne Medication Administered: HYDROCODONE-APAP [PO] (HYDROCODONE-ACETAMINOPHEN), Dose: 1 tab 5/325 mg Tablets PO. Medication Ordered: Hydrocodone-APAP PO 5/325 mg (NOW, HIGH ALERT MEDICATION).
--- NOTE | 2017-01-10 21:47 | ED MED RECONCILIATION SUMMARY ---
Patient: SKYLER KNUTSON Medication Reconciliation Report [facility] VisitID: [id number] [address] [place] [address] 21y, F Registration Date/Time: 01/10/2017 Weight: 71.2 kg Height/Length: 68 in. BMI: 23.9 ALLERGIES: Qvar Inhalation The patient's Home Medications are listed below: THE FOLLOWING MEDICATIONS NEED TO BE RECONCILED: Albuterol Sulfate Inhalation 2 puffs, PRN The source(s) of the original Home Medication information: patient The following Medications were given to the patient in the Emergency Department: Hydrocodone-APAP [PO] PO 1 tab, administered: 01/10/2017 9:18:00 PM The following Medications were prescribed to the patient: Hydrocodone/APAP 5mg / 325mg: take 1 orally every 6 hours as needed for pain. Dispense ten (10). No refill. -- Desirae Harris, PZoeAZoe-C
--- NOTE | 2017-01-10 21:47 | ED MAR SUMMARY ---
..... Medication Administration Record [facility] [address] [place] [address] Patient: SKYLER KNUTSON Visit ID: [id number] 21y, F Weight: 71.2 kg Height/Length: 68 in BMI: 23.9 ALLERGIES: Qvar Inhalation Given 21:18 01/10/2017 Arturo, Mehreen RAdrienne Medication Administered: HYDROCODONE-APAP [PO] (HYDROCODONE-ACETAMINOPHEN), Dose: 1 tab 5/325 mg Tablets PO. Medication Ordered: Hydrocodone-APAP PO 5/325 mg (NOW, HIGH ALERT MEDICATION).
--- NOTE | 2017-01-10 21:47 | ED DISCHARGE INSTRUCTIONS ---
Patient: SKYLER KNUTSON General Instructions [facility] VisitID: [id number] [address] [place] [address] 21y, F Registration Date/Time: 01/10/2017 Distal phalanx fracture of the right thumb (avulsion). INSTRUCTIONS Apply ice. Elevate affected areas above chest level. Limit use of your hand. Prescription Medications: Hydrocodone/APAP 5mg / 325mg: take 1 orally every 6 hours as needed for pain. Dispense ten (10). No refill. Follow-up with: [facility], , [address], [place], [address] Follow up. Call for the next available appointment. ADDITIONAL INFORMATION Fracture: Finger [Closed] You have a fracture of your finger (broken finger). This causes local pain, swelling and bruising. This injury takes about four weeks to heal. Finger injuries are often treated with a splint, cast or by taping the injured finger to the next one ("lennox taping"). This protects the injured finger and holds the bone in position while it heals. More serious fractures may require surgery. If the FINGERNAIL has been severely injured, it will probably fall off in 1-2 weeks. A new fingernail will usually start to grow back within a month. Home Care: 1) Keep your hand elevated to reduce pain and swelling. When sitting or lying down elevate your arm above the level of your heart. You can do this by placing your arm on a pillow that rests on your chest or on a pillow at your side. This is most important during the first 48 hours after injury. 2) Apply an ice pack (ice cubes in a plastic bag, wrapped in a towel) over the injured area for 20 minutes every 1-2 hours the first day for pain relief. Continue this 3-4 times a day until the pain and swelling goes away. 3) Keep the cast/splint completely dry at all times. Bathe with your cast/splint out of the water, protected with a large plastic bag, rubber-banded at the top end. If a fiberglass cast/splint gets wet, you can dry it with a hair-dryer. 4) If lennox tape was applied and it becomes wet or dirty, change it. You may replace it with paper, plastic or cloth tape. Cloth tape and paper tapes must be kept dry. Keep the lennox tape in place for at least four weeks. 5) You may use acetaminophen (Tylenol) or ibuprofen (Motrin, Advil) to control pain, unless another pain medicine was prescribed. [ NOTE : If you have chronic liver or kidney disease or ever had a stomach ulcer or GI bleeding, talk with your doctor before using these medicines.] Follow Up with your doctor within one week, or as advised by our staff, to be sure the bone is healing properly, . [NOTE: A radiologist will review any X-rays that were taken. We will notify you of any new findings that may affect your care.] Get Prompt Medical Attention if any of the following occur: -- The plaster cast or splint becomes wet or soft -- The fiberglass cast or splint remains wet for more than 24 hours -- Pain or swelling increases -- Redness, warmth, swelling, drainage from the wound or foul odor from a cast or splint -- Finger becomes more cold, blue, numb or tingly Hydrocodone Bitartrate, Acetaminophen Oral tablet What is this medicine? ACETAMINOPHEN; HYDROCODONE (a set a ANKIT daryn fen; yudelka droe KOE done) is a pain reliever. It is used to treat mild to moderate pain. How should I use this medicine? Take this medicine by mouth. Swallow it with a full glass of water. Follow the directions on the prescription label. If the medicine upsets your stomach, take the medicine with food or milk. Do not take more than you are told to take. Talk to your health and safety coordinator regarding the use of this medicine in children. This medicine is not approved for use in children. What side effects may I notice from receiving this medicine? Side effects that you should report to your doctor or health cattle care worker as soon as possible: allergic reactions like skin rash, itching or hives, swelling of the face, lips, or tongue breathing problems confusion feeling faint or lightheaded, falls stomach pain yellowing of the eyes or skin Side effects that usually do not require medical attention (report to your doctor or health cattle care worker if they continue or are bothersome): nausea, vomiting stomach upset What may interact with this medicine? alcohol antihistamines isoniazid medicines for depression, anxiety, or psychotic disturbances medicines for sleep muscle relaxants naltrexone narcotic medicines (opiates) for pain phenobarbital ritonavir tramadol What if I miss a dose? If you miss a dose, take it as soon as you can. If it is almost time for your next dose, take only that dose. Do not take double or extra doses. Where should I keep my medicine? Keep out of the reach of children. This medicine can be abused. Keep your medicine in a safe place to protect it from theft. Do not share this medicine with anyone. Selling or giving away this medicine is dangerous and against the law. Store at room temperature between 15 and 30 degrees C (59 and 86 degrees F). Protect from light. Keep container tightly closed. Throw away any unused medicine after the expiration date. Discard unused medicine and used packaging carefully. Pets and children can be harmed if they find used or lost packages. What should I tell my health care provider before I take this medicine? They need to know if you have any of these conditions: brain tumor Crohn's disease, inflammatory bowel disease, or ulcerative colitis drink more than 3 alcohol-containing drinks per day drug abuse or addiction head injury heart or circulation problems kidney disease or problems going to the bathroom liver disease lung disease, asthma, or breathing problems an unusual or allergic reaction to acetaminophen, hydrocodone, other opioid analgesics, other medicines, foods, dyes, or preservatives or trying to get breast-feeding What should I watch for while using this medicine? Tell your doctor or health cattle care worker if your pain does not go away, if it gets worse, or if you have new or a different type of pain. You may develop tolerance to the medicine. Tolerance means that you will need a higher dose of the medicine for pain relief. Tolerance is normal and is expected if you take the medicine for a long time. Do not suddenly stop taking your medicine because you may develop a severe reaction. Your body becomes used to the medicine. This does NOT mean you are addicted. Addiction is a behavior related to getting and using a drug for a non-medical reason. If you have pain, you have a medical reason to take pain medicine. Your doctor will tell you how much medicine to take. If your doctor wants you to stop the medicine, the dose will be slowly lowered over time to avoid any side effects. You may get drowsy or dizzy when you first start taking the medicine or change doses. Do not drive, use machinery, or do anything that may be dangerous until you know how the medicine affects you. Stand or sit up slowly. There are different types of narcotic medicines (opiates) for pain. If you take more than one type at the same time, you may have more side effects. Give your health care provider a list of all medicines you use. Your doctor will tell you how much medicine to take. Do not take more medicine than directed. Call emergency for help if you have problems breathing. The medicine will cause constipation. Try to have a bowel movement at least every 2 to 3 days. If you do not have a bowel movement for 3 days, call your doctor or health cattle care worker. Too much acetaminophen can be very dangerous. Do not take Tylenol (acetaminophen) or medicines that contain acetaminophen with this medicine. Many non-prescription medicines contain acetaminophen. Always read the labels carefully. You have been given the following additional information: Fracture, Finger (Closed) Hydrocodone Bitartrate, Acetaminophen Oral tablet Limit use of your hand. (Electronically signed by Desirae Harris P.A.-C 01/10/2017 21:47)
--- NOTE | 2017-01-10 21:47 | ED MED RECONCILIATION SUMMARY ---
Patient: SKYLER KNUTSON Medication Reconciliation Report [facility] VisitID: [id number] [address] [place] [address] 21y, F Registration Date/Time: 01/10/2017 Weight: 71.2 kg Height/Length: 68 in. BMI: 23.9 ALLERGIES: Qvar Inhalation The patient's Home Medications are listed below: THE FOLLOWING MEDICATIONS NEED TO BE RECONCILED: Albuterol Sulfate Inhalation 2 puffs, PRN The source(s) of the original Home Medication information: patient The following Medications were given to the patient in the Emergency Department: Hydrocodone-APAP [PO] PO 1 tab, administered: 01/10/2017 9:18:00 PM The following Medications were prescribed to the patient: Hydrocodone/APAP 5mg / 325mg: take 1 orally every 6 hours as needed for pain. Dispense ten (10). No refill. -- Desirae Harris, PZoeAZoe-C
== END 2017-01-10 21:25 | disposition home or self-care (01) ==
LOC: ED SRH 19:38
DX: S62.521A Displaced fracture of distal phalanx of right thumb, initial encounter for closed fracture (principal); X58.XXXA Exposure to other specified factors, initial encounter; Y93.9 Activity, unspecified; Y92.019 Unspecified place in single-family (private) house as the place of occurrence of the external cause; Y99.9 Unspecified external cause status; J45.909 Unspecified asthma, uncomplicated; Z79.899 Other long term (current) drug therapy; Z87.891 Personal history of nicotine dependence; Z88.8 Allergy status to other drugs, medicaments and biological substances